=== PATIENT | female | born 1985 | race American Indian/Alaskan Native ===

== ENCOUNTER 2019-06-30 10:03 | Emergency (ER) | payer MEDICAID ==
--- NOTE | 2019-06-30 10:39 | Emergency Department Report ---
ED Female HPI - General Chief complaint: Urogenital-Female Stated complaint: CHUA CATHETER REPLACED Time Seen by Provider: 06/30/19 10:27 Source: patient Mode of arrival: Wheelchair Limitations: Physical Limitation - History of Present Illness Initial comments: Patient is a 33-year-old female who presents to the emergency room due to issues with her Chua catheter that began 2 days ago. she states that she is having urine leak around her catheter for the last 2 days. pt has history of spina bifida and is wheelchair bound. pt states that her Chua catheter is typically replaced every month by home health. Patient denies any fever, nausea, vomiting, diarrhea, any other symptoms. She has a past medical history of high blood pressure. States she does have a primary care doctor. 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 Absent: respiratory distress, wheezes, rales, rhonchi, stridor, chest wall tenderness, accessory muscle use, decreased breath sounds, prolonged expiratory - Cardiovascular Cardiovascular Exam: Present: regular rate, normal rhythm, normal heart sounds. Absent: systolic murmur, diastolic murmur, rubs, gallop - Neurological Exam Neurological exam: Present: alert, oriented X3 - Psychiatric Psychiatric exam: Present: normal affect, normal mood - Skin Skin exam: Present: warm, dry, intact ED Course Vital Signs 06/30/19 06/30/19 10:12 13:00 Temperature 97.7 F 98.0 F Pulse Rate 74 80 Respiratory 16 18 Rate Blood Pressure 112/82 Blood Pressure 115/78 [Left] O2 Sat by Pulse 96 98 Oximetry ED Medical Decision Making - Medical Decision Making Patient is a 33-year-old female who presents to the emergency room due to issues with her Chua catheter that began 2 days ago. she states that she is having urine leak around her catheter for the last 2 days. pt has history of spina bifida and is wheelchair bound. pt states that her Chua catheter is typically replaced every month by home health. Patient denies any fever, nausea, vomiting, diarrhea, any other symptoms. She has a past medical history of high blood pressure. States she does have a primary care doctor. vitals are normal. no abd tenderness on exam. pts catheter was removed, nurse informed me that the catheter appeared to be a coude catheter. advised RN to please place a normal chua catheter. catheter placed by RN with good urine output and no more leakage. discussed with pt that she needed to discuss with a urologist the possibility of a suprapubic catheter. she states that she and her urologist at [facility] [place] are currently planning to have this placed. advised pt to please follow up with your primary care doctor in the next 2-3 days. Return to the emergency room for any new or worsening symptoms. Critical care attestation.: If time is entered above; I have spent that time in minutes in the direct care of this critically ill patient, excluding procedure time. ED Disposition Clinical Impression: Encounter for Chua catheter replacement Chua catheter problem Qualifiers: Encounter type: initial encounter Qualified Code(s): T83.9XXA - Unspecified complication of genitourinary prosthetic device, implant and graft, initial encounter Disposition: DC- TO HOME OR SELFCARE Is pt being admited?: No Does the pt Need Aspirin: No Condition: Stable Instructions: Chua Catheter Placement and Care (ED) Additional Instructions: Please follow up with your primary care doctor in the next 2-3 days. Return to the emergency room for any new or worsening symptoms. Referrals: your, primary care doctor [Other] - 2-3 Days Time of Disposition: 10:39 Print Language: MICRONESIAN
[2019-06-30 13:01] VITALS: BP 115/78
== END 2019-06-30 13:08 | disposition home or self-care (01) ==
LOC: ED 10:03
DX: T83.038A Leakage of other urinary catheter, initial encounter (principal); I10 Essential (primary) hypertension; E11.9 Type 2 diabetes mellitus without complications; Y92.89 Other specified places as the place of occurrence of the external cause
CPT/HCPCS: 51702; 99282